=== PATIENT | male | born 1985 | race Caucasian/White ===

== ENCOUNTER 2021-06-10 20:20 | Outpatient (REF) | payer SELFPAY ==
[2021-06-10 20:48] LABS: Crystals (BF) No Crystals seen
[2021-06-10 21:02] LABS: Mononuclear Cells 88 %; Polynuclear Cells 12 %
== END 2021-06-10 20:21 | disposition home or self-care (01) ==
LOC: NCHCN 20:20
PROVIDERS: PCP Internal Medicine; Visit Provider Internal Medicine
DX: M25.462 Effusion, left knee (principal)
CPT/HCPCS: 89051; 87070; 87205; 89060

== ENCOUNTER 2022-12-06 17:15 | Emergency (ER) | payer SELFPAY ==
[2022-12-06 17:20] VITALS: BP 145/73; PULSE 73; RESP 20; TEMP 37.1; O2SAT 99
--- NOTE | 2022-12-06 17:45 | DI.RAD_ITS ---
Exam(s) XR KNEE RT 3V AP,LAT,BANDAR EXAM: XR KNEE RT 3V AP,LAT,BANDAR CLINICAL HISTORY: lateral knee pain/ injury. TECHNIQUE: 2D digital imaging was performed. COMPARISON: No exams were available for comparison FINDINGS: Four views No evidence of fracture but there is a joint effusion noted. Bone density normal. No degenerative c hanges. No osteochondral defects. IMPRESSION: No osseous findings but there is a joint effusion which may signify an internal derangement. Appropr iate follow-up recommended. DATA REPOSITORY: RADIATION DOSE DELIVERED:
[2022-12-06] MEDS: Ketorolac 10 MG TAB PO (18:11)
--- NOTE | 2022-12-06 18:39 | DI.VRAD_ITS ---
PROCEDURE INFORMATION: Exam: XR Right Knee Exam date and time: 12/06/2022 6:11 PM Age: 37 years old Clinical indication: Right; Patient HX: Lateral knee pain/ injury TECHNIQUE: Imaging protocol: Radiologic exam of the right knee. Views: 3 views. COMPARISON: No relevant prior studies available. FINDINGS: Bones/joints: Small joint effusion of nonspecific appearance. No fracture. No dislocation. Soft tissues: No soft tissue disruption. No gas or foreign body. IMPRESSION: 1. Small nonspecific knee joint effusion. 2. No fracture or dislocation. 3. Unremarkable soft tissues. Dictated and Authenticated by: Derek Cleveland MD. Ordering:ANDREY Felix MD
--- NOTE | 2022-12-06 19:01 | W.ED.GENAD ---
Discharge Plan Disposition Patient Disposition: Home Discharge Details Clinical Impression: Injury of knee, right Primary Care Provider: Jey Jacobs ED Provider: Isidro Lozano Home Meds and New Rx's Prescriptions: New ketorolac 10 mg tablet 10 mg PO TID 5 Days Qty: 15 0RF Held ibuprofen 200 mg Tablet 200 mg PO PRN PRN Hold Instructions: Until you have completed the prescribed pain medication Discharge Instructions Instructions: Swollen Knee Joint (ED), R.I.C.E. Treatment (ED) Additional Instructions: You may perform weightbearing activities as tolerated but it is recommended that you wear the hinged knee brace during any activity or walking. You may use nukj-mwf-mcglvdz acetaminophen/Tylenol but do not take any other ynuf-dsv-wcljtsj pain medication as this may interact with the prescribed medication you were given. You have been placed on a follow-up to follow-up with orthopedics as I suspect possible internal knee injury versus ligamentous injury. Please call their office tomorrow for arrangement of follow-up appointment. Feel free to return the emergency department for any new or significant worsening of symptoms Referrals: [facility] [Provider Group] (Please call the office tomorrow afternoon for arrangement of your follow-up appointment) Medical Decision Making Patient presenting to the emergency department for chief complaint of knee pain. Patient reports approximately 1 month ago getting out of his car his knee buckled outwards and caused him to fall. Within the next 24 hours he states multiple times and episodes of the knee completely becoming unstable and giving out on him. He has intermittently used muwk-bcg-zmnljfp knee bracing along with NSAIDs but is not improving symptoms. He does state when swelling is bad he does have some tingling noted to his foot. Patient denies any other injury or trauma, fever chills, or other in joint involvement. Physical exam shows lateral knee tenderness to palpation especially on the joint line, lateral tenderness with varus testing painful but full intact range of motion. Given instability will perform radiological imaging but I have high suspicion of lateral ligament and/or meniscus injury. Pending results will give p.o. ketorolac Review of radiological imaging shows joint effusion but no acute findings. Patient placed in a hinged knee brace which she stated helped feel more stable. Patient otherwise will remain weightbearing as tolerated and placed upon follow-up list for Ortho follow-up as I do feel high suspicion that patient will need MRI imaging given that it has been 1 month of symptoms with no improvement. After discussion of diagnosis and plan of care patient has no further needs, questions, or concerns and states clear understanding to return to the emergency department for any worsening symptoms. This documentation was generated using [employer]ation system, please disregard any oddities of phrase or misspellings. Imaging Data Radiologic Study: Imaging: X-Ray Radiologist's impression: Exam(s) PROCEDURE INFORMATION: Exam: XR Right Knee Exam date and time: 12/06/2022 6:11 PM Age: 37 years old Clinical indication: Right; Patient HX: Lateral knee pain/ injury TECHNIQUE: Imaging protocol: Radiologic exam of the right knee. Views: 3 views. COMPARISON: No relevant prior studies available. FINDINGS: Bones/joints: Small joint effusion of nonspecific appearance. No fracture. No dislocation. Soft tissues: No soft tissue disruption. No gas or foreign body. IMPRESSION: 1. Small nonspecific knee joint effusion. 2. No fracture or dislocation. 3. Unremarkable soft tissues. HPI General Mode of arrival: ambulatory. Date/Time Provider Initiated Documentation: 12/06/22 17:25. Limitations to Documentation: no limitations. Information obtained by: patient and RN notes reviewed. History of Present Illness 37 year old M presents to the emergency department with the chief complaint of Right knee injury, described as moderate, Quality is described as aching and sharp, and is localized to the right and lower extremity. Patient reports no radiation. Patient started experiencing this month(s) (1) and it has been constant. Immobilization improves symptom(s), Movement worsens symptoms . Patient notes no other symptoms.. Patient did receive the following treatments prior to arrival, NSAID Related Data Home Medications Medication Instructions Recorded Confirmed ibuprofen 200 mg tablet 200 mg PO PRN PRN 12/06/22 12/06/22 ketorolac 10 mg tablet 10 mg PO TID 5 days #15 tabs 12/06/22 Previous Rx's Medication Instructions Recorded ketorolac 10 mg tablet 10 mg PO TID 5 days #15 tabs 12/06/22 Allergies Allergy/AdvReac Type Severity Reaction Status Date / Time latex Allergy Severe Anaphylaxis Unverified 12/06/22 17:25 peach Allergy Severe Swelling/Ed Unverified 12/06/22 17:25 anastasiya mold Allergy Intermediate Swelling/Ed Unverified 12/06/22 17:25 anastasiya General Stated Complaint: Orthopedic ANDERS: 4 Review of Systems Constitutional Constitutional: Denies chills and Denies fever(s) Musculoskeletal Musculoskeletal: Reports as per HPI, Reports arthralgias, Reports joint swelling, Reports limited range of motion, Denies muscle weakness, Denies numbness and Reports tingling Integumentary/Breasts Skin/Breast: Denies erythema and Denies rash Neurologic Neurologic: Denies numbness and Reports tingling PFSH All Active Problems Injury of knee, right (Acute) Social History Smoking risk assessment performed?: No Exam Const General: cooperative, no acute distress and not ill appearing Orientation: alert, awake and oriented x3 HENMT Mouth: moist mucous membranes Resp Effort & Inspection: normal respiratory effort, able to speak in complete sentences and no respiratory distress Cardio Rate: regular rate Rhythm: regular rhythm Pulses: posterior tibial pulses present and dorsalis pedis present Skin General skin exam: no rashes or lesions noted Neuro General: patient alert, patient awake, patient oriented x3, moves all extremities and no focal motor deficits Sensory Exam: no sensory deficits noted Extrem General: normal exam except as noted Right lower extremity: knee Details: tenderness Location: of the patella and of the lateral joint line, swelling Location: of the infrapatellar area, normal ROM, abnormal ROM Details: pain with active ROM during and pain with passive ROM during; able to extend lower leg actively, knee ligament exam normal Details: anterior drawer test normal, posterior drawer test normal and varus stress test normal and knee ligament exam abnormal Details: valgus stress test normal and pain with axial loading; no ecchymosis and no deformity Course Vital Signs Vital signs: Vital Signs Temperature 37.1 C 12/06/22 17:20 Pulse 73 12/06/22 17:20 Respiratory Rate 20 12/06/22 17:20 Blood Pressure 145/73 H 12/06/22 17:20 Pulse Oximetry 99 12/06/22 17:20 Temperature 37.1 C 12/06/22 17:20 Temperature Source Oral 12/06/22 17:20 Pulse 73 12/06/22 17:20 Respiratory Rate 20 12/06/22 17:20 Respiratory Effort Normal 12/06/22 17:30 Blood Pressure 145/73 H 12/06/22 17:20 Blood Pressure Position Sitting 12/06/22 17:20 Pulse Oximetry 99 12/06/22 17:20 Oxygen Delivery Method Room Air 12/06/22 17:20 Oxygen Flow Rate 0 12/06/22 17:20 Pain Level 3 12/06/22 17:20 PAWSS Have you Been Recently Intoxicated or Drunk Within the Last 30 days?: No Have you Ever Experienced Previous Episodes of Alcohol Withdrawal?: No Have you ever Experienced Withdrawal Seizures?: No Have you ever Experienced Delirium Tremens(DT)s?: No Have you ever undergone Alcohol Rehabilitation Treatment (i.e, inpt ot outpatient treatment programs)?: No Have you ever Experienced Blackouts?: No Have you ever Combined Alcohol with other Downers within the last 90 days?: No Have you ever Combined Alcohol with any other Substance of Abuse during the last 90 days?: No Positive Blood Alcohol level on Presentation? [PCS.BAL]: No Evidence of Increased Autonomic Activity (i.e. HR>120, tremor, sweating, agitation, nausea)?: No Result: 0
== END 2022-12-06 19:23 | disposition home or self-care (01) ==
PROVIDERS: Emergency Provider Nurse Practitioner Family; PCP Internal Medicine
DX: S89.91XA Unspecified injury of right lower leg, initial encounter (principal); X58.XXXA Exposure to other specified factors, initial encounter
CPT/HCPCS: 73562; 99283; 99284